=== PATIENT | female | born 1940 | race Caucasian/White ===

== ENCOUNTER 2018-01-25 09:15 | Emergency (ER) | payer MEDICARE ==
[~2018-01-25] VITALS: Ht 154.9 cm; Wt 59.1 kg
[2018-01-25] MEDS ORDERED: ATOR20TA86 PO (09:39)
[2018-01-25] MEDS ORDERED: AMLO2.5T PO (09:39)
[2018-01-25] MEDS ORDERED: ASPI-556 PO (09:40)
[2018-01-25] MEDS ORDERED: VITAD1000 PO (09:41)
[2018-01-25] MEDS ORDERED: IBUP200C5 PO (09:43)
[2018-01-25 10:32] VITALS: BP 151/75
== END 2018-01-25 11:25 | disposition home or self-care (01) ==
LOC: EEVIPCON 09:19 → EMS 09:19
DX: S83.92XA Sprain of unspecified site of left knee, initial encounter (principal); E78.00 Pure hypercholesterolemia, unspecified; I10 Essential (primary) hypertension; Z79.82 Long term (current) use of aspirin; Z88.6 Allergy status to analgesic agent; Z88.5 Allergy status to narcotic agent; X58.XXXA Exposure to other specified factors, initial encounter; Y93.89 Activity, other specified; Y92.89 Other specified places as the place of occurrence of the external cause; Y99.8 Other external cause status
CPT/HCPCS: 29505; 99284